=== PATIENT | female | born 1980 | race Two or more races ===

== ENCOUNTER 2023-03-02 07:47 | Emergency (ER) | payer OTHER ==
[~2023-03-02] VITALS: Ht 162.6 cm; Wt 74.8 kg
[2023-03-02] MEDS ORDERED: SYNTHROID50 MCG (08:02)
== END 2023-03-02 09:23 | disposition home or self-care (01) ==
LOC: ER 07:47
DX: H00.019 Hordeolum externum unspecified eye, unspecified eyelid (principal)